=== PATIENT | female | born 1950 | race Caucasian/White ===

== ENCOUNTER 2017-06-30 15:31 | Inpatient (IN) | payer OTHER ==
[~2017-06-30] VITALS: Ht 157.5 cm; Wt 68.0 kg
[2017-07-21] MEDS ORDERED: PROTONIX40 M1 PO (16:28)
== END 2017-07-28 14:20 | disposition home or self-care (01) | DRG 328 ==
LOC: O/R 07-27 06:02 → SURH 07-27 06:02 → SURG 07-27 14:22 → SURH 07-27 17:27
PROVIDERS: Surgery
PROC: 0DS64ZZ Reposition Stomach, Percutaneous Endoscopic Approach (ICD-10-PCS; 2017-07-27)
PROC: 0WQF4ZZ Repair Abdominal Wall, Percutaneous Endoscopic Approach (ICD-10-PCS; 2017-07-27)
PROC: 0DJ08ZZ Inspection of Upper Intestinal Tract, Via Natural or Artificial Opening Endoscopic (ICD-10-PCS; 2017-07-27)
PROC: BD11YZZ Fluoroscopy of Esophagus using Other Contrast (ICD-10-PCS; 2017-07-27)
PROC: 0DV44ZZ Restriction of Esophagogastric Junction, Percutaneous Endoscopic Approach (ICD-10-PCS; principal; 2017-07-27 08:30)
DX: K44.9 Diaphragmatic hernia without obstruction or gangrene (principal); K31.89 Other diseases of stomach and duodenum; R13.19 Other dysphagia; K42.9 Umbilical hernia without obstruction or gangrene; K43.2 Incisional hernia without obstruction or gangrene; K21.9 Gastro-esophageal reflux disease without esophagitis